=== PATIENT | female | born 1995 | race Two or more races ===

== ENCOUNTER 2025-08-29 11:12 | Outpatient (AMB) | payer MEDICAID, SELFPAY ==
[2025-08-29 11:36] VITALS: BP 107/70; PULSE 74; RESP 16; TEMP 36.6; O2SAT 97; BMI 30.4
--- NOTE | 2025-08-29 11:36 | OBCLNT_ITS ---
Vital Signs 08/29/25 11:36 Height 1.63 m Height Method Stated Weight 80.399 kg Weight Measurement Method Standing Scale BMI 30.4 BP 107/70 Blood Pressure Source Automatic Cuff Blood Pressure Location Left Upper Arm Position Sitting Respiration 16 Pulse 74 Pulse Source Monitor Temp 98 F Temp Source Oral Pulse Oximetry (%) 97 Oxygen Delivery Method Room Air Allergies/Home Meds Allergies & Medications Allergies No Known Allergies Allergy (Verified 08/29/25 11:37) Medication Reconciliation No Known Home Medications 08/29/25 [History Confirmed 08/29/25] Intake Visit Data Collection New Patient or Established: Established Patient (seen at [facility] within 3 years) Reason for Visit:: INITIAL CARE Seen by Clinical Staff ONLY (RN/MA): No Gold Letterer Required: Yes Gold Letterer's name/title: DIGNA GAINES Do You Feel Safe at Home: Yes Authorities Contacted: N/A PCP or OBGYN visit in last 3 months: Yes Hx Now: Yes Are you currently on any form of Control: No Pain Present Currently: No Pain Scale Used: Aguilar-Fishman/Numerical Pain scale:: 0 Smoking Status Smoking Status: Never smoker Questionnaires Covid-19 Vaccine Questionnaire Has patient been vacinated for Covid-19 Have you been vacinated for Covid-19: Yes PHQ-9 PHQ-2 Over the last 2 weeks, how often have you been bothered by any of the following problems? 1. Little interest or pleasure in doing things: not at all 2. Feeling down, depressed, or hopeless: not at all Total score: 0 PHQ-9 3. Trouble falling or staying asleep, or sleeping too much: Not at all 4. Feeling tired or having little energy: Not at all 5. Poor appetite or overeating: Not at all 6. Feeling bad about yourself - or that you are a failure or have let yourself or your family down: Not at all 7. Trouble concentrating on things, such as reading the newspaper or watching television: Not at all 8. Moving or speaking so slowly that other people could have noticed? - Or the opposite - being so fidgety or restless that you have been moving around a lot more than usual: not at all 9. Thoughts that you would be better off or of hurting yourself in some way: Not at all Total score: 0 Source: Developed by Drs. Rinku Sargent, Corinne La, Alec Avery and colleagues, with an educational jackie from [employer]. Depression screen completed yes Social History Living Situation History Marital Status: Lives With: Family Housing: House Tobacco History Smoking Status: Never smoker Second Hand Smoke Exposure: No Alcohol History Alcohol Intake: Never Domestic Abuse History Do You Feel Safe at Home: Yes History of Present Illness HPI Narrative Rhina Barcenas is a 2, para 2 patient with a history of previous section presenting for transfer of care from [facility] at 33 weeks and 3 days gestation. Her last menstrual period was in 2008 with an estim ated due date of October 14, 2025, which is consistent with first trimester ultrasound dating. The patient has a history of intravenous drug use, specifically methamphetamine, with her last use occurring in May. She was recently incarcerated and is currently participating in a rehabilitation program. During routine screening, she tested positive for hepatitis C with a high viral load, indicating an active infection. The patient acknowledges her history of IV drug use, which was not previously documented in her chart. The patient's other routine screens were negative, including AFP, cystic fibrosis screening, and spinal muscular atrophy screening. She opted out of gender determination during testing. Her blood type is positive. She has a history of previous section. The patient has a history of IV methamphetamine use, last use in May 2025, and is currently attending rehabilitation/treatment program. She was recently incarcerated and released in May 2025. She has an obstetric history of G3 T2 L2. Her current is at 33 weeks 3 days gestation with an estimated due date of October 14, 2025. She has a history of previous section and is para 2 with two prior deliveries. OB Initial Visit OB Flowsheet OB Flowsheet Initial Weight: Not Recorded Date -?-?-?-?-?-?-?-?-?-?-?-?- EGA Weight BP Alb Glu CTX Pres Fundal ht FHR Mov Dilation Station Effacement Hx Notes Visit Note 08/29/25 -?-?-?-?-?-?-?-?-?-?-?-?- 33w 3d 80.399 kg 107/70 34 150 New OB. Please see SOAP Note Menstrual History Menstrual reliability: definite Flow: normal Menstrual regularity: regular Monthly: Yes Age at menarche: 13 On control pills at conception: No Associated symptoms (LMP): Denies amenorrhea, nausea, vomiting, fatigue, breast tenderness, urinary frequency, irritability, bloating or other OB History : 4 Para: 2 Hx Total # of Abortions (Spontaneous & Elective): 1 # of Living Children: 2 Delivery History 1st : Child's name: RONEL date: 01/12/17 sex: male Gestational age at delivery (weeks): 41 Delivery type: Delivery complications: NONE History of depression before or after : No 2nd : Child's name: EDITH date: 06/11/24 sex: female Gestational age at delivery (weeks): 38 Delivery type: Delivery complications: NONE History of depression before or after : No Infection History & Risk Evaluation History of STDs: none Genetic Screening & History Genetic Screening/Teratology Counseling - Includes patient, baby's father, or anyone in either family with: 1. Patient's age 35 years or older as of estimated date of delivery: No 2. Thalassemia (Syriac, Japanese, Mediterranean, or Background); MCV less than 80: No 3. Neural Tube Defect (Meningomyelocele, Spina Bifida, or Anencephaly): No 4. Congenital Heart Defect: No 5. Down Syndrome: No 6. Yeison-Sachs (Ashkenazi Confucianism, Cajun, Japanese [place]): No 7. Baron Disease (Ashkenazi Confucianism): No 8. Familial Dysautonomia (Ashkenazi Confucianism): No 9. Sickle Cell Disease or Trait (): No 10. Hemophilia or other blood disorders: No 11. Muscular Dystrophy: No 12. Cystic Fibrosis: No 13. Otse[place]'s Chorea: No 14. Mental Retardation/Autism: No 15. Other inherited genetic or chromosomal disorder: No 16. Maternal Metabolic Disorder (EG,TYPE 1 Diabetes, PKU): No 17. Patient or baby's father had a child with defects not listed above: No 18. Recurrent loss or a stillbirth: No 19. Medications (including supplements, vitamins, herbs or otc drugs)/illicit/recreational drugs/alcohol since last menstrual period: No 20. Any other: No Infection History 1. Live with someone with TB or exposed to TB: No 2. Rash or viral illness since last menstrual period: No 3. Hepatitis B,C: No Other (see comments) Source: [employer] Review of Systems Constitutional Constitutional: Denies fatigue Gastrointestinal Gastrointestinal: Denies bloating, Denies nausea and Denies vomiting Genitourinary Genitourinary: Denies amenorrhea and Denies urinary frequency Psychiatric Psychiatric: Denies irritability Endocrine Endocrine: Denies fatigue Exam General General Appearance: alert, in no apparent distress and healthy appearing Head Head exam: atraumatic Neck Neck exam: Present normal inspection and trachea midline Chest Chest inspection: Present normal inspection and symmetric chest wall rise External exam: Present normal external exam; Absent tenderness Neuro Neurological exam: Present oriented X3 Psych Psychiatric exam: Present normal affect and normal mood Office Procedures OBC Clinic LOC & Office Proc's Nursing/Assessment Patient Status: Initial/New Patient OB Clinic Nursing Assessment: Medication Reconciliation, Update PMH in EMR and Vital Signs OB Clinic Coordination of Care: Complex Care and Chronic Disease 1-5, Consent,records obtained, informed consent, Education Simp Pt/Fam, Lab and Imaging orders, Results/Orders obtained and Staff clarify orders Special Needs: Heart tones New Patient Charge New Patient Point Assignment: 1134 New Patient Point Charge: ASSISTANT PROFESSOR OF PHYSICS Level 4 ([id number]) Immunizations diphth,pertus(acell),tetanus 2.5 Lf unit-8 mcg-5 Lf/0.5mL IM syringe Performing Provider: John Serra MD Performing Location: [facility] Administered by: Digna Gaines MA on 08/29/25 11:58 Dose Route Admin Location Dispensed Lot Number Expiration Date Pack age [facility] Bucket Wash Operator 0.5 mL IM Right Deltoid 0.5 mL [id number] 10/26/27 35005-550-02 [id number] [employer] VIS Given Date VIS Provided VIS Publication Date 08/29/25 Single Vaccine 24 Eligibility Eligibility Date Funding Source Public Non-[facility] Assessment & Plan Diagnosis / Problem List (1) Maternal care for low transverse scar from previous delivery: Status: Acute (2) Supervision of high risk , unspecified, third trimester: Status: Acute (3) Chronic viral hepatitis C: Status: Acute (4) Personal history of nicotine dependence: Status: Acute Plan Hepatitis C Positive Screening: - Routine screening revealed positive hepatitis C with high viral load suggesting active infection. - History of IV methamphetamine use with last use in May, consistent with hepatitis C transmission risk factors. - Patient was previously incarcerated and tested for hepatitis C during that time. Plan: - Follow-up labs ordered. - Referral to maternal- medicine pending. - Appointment scheduled with infectious disease specialist for hepatitis management. - Patient to sisal picker lab slip for additional testing. at 33 weeks 3 days: - patient with history of previous section. - Currently at 33 weeks 3 days gestation based on LMP 01/07/2025 with CURRY 10/14/2025, consistent with first trimester ultrasound. - Transfer of care from previous provider Dr. Palomino at [facility]. - Blood type O positive. - Genetic screening negative for cystic fibrosis, spinal muscular atrophy, and AFP negative. - Patient opted out of gender determination. Plan: - Continue routine care. - Review attached initial labs and ultrasound results.
== END 2025-08-29 12:59 | disposition home or self-care (01) ==
LOC: HODSOBC 11:12
PROVIDERS: PCP Obstetrics & Gynecology; Referring Provider Obstetrics & Gynecology; Supervising Provider Obstetrics & Gynecology; Visit Provider Obstetrics & Gynecology
DX: O09.293 Supervision of pregnancy with other poor reproductive or obstetric history, third trimester (principal); O34.211 Maternal care for low transverse scar from previous cesarean delivery; O09.893 Supervision of other high risk pregnancies, third trimester; O98.413 Viral hepatitis complicating pregnancy, third trimester; B18.2 Chronic viral hepatitis C; Z3A.33 33 weeks gestation of pregnancy; Z23 Encounter for immunization; Z87.891 Personal history of nicotine dependence
CPT/HCPCS: 90471; 90715; 99204; G0463

== ENCOUNTER 2025-09-13 14:56 | Outpatient (AMB) | payer MEDICAID, SELFPAY ==
[2025-09-13 15:02] VITALS: BP 109/67; PULSE 81; RESP 16; TEMP 36.2; O2SAT 97; BMI 31.3
--- NOTE | 2025-09-13 15:02 | OBCLNT_ITS ---
Vital Signs 09/13/25 15:02 Height 1.63 m Height Method Stated Weight 83.178 kg Weight Measurement Method Standing Scale BMI 31.3 BP 109/67 Blood Pressure Source Automatic Cuff Blood Pressure Location Left Upper Arm Position Sitting Respiration 16 Pulse 81 Pulse Source Monitor Temp 97.2 F Temp Source Oral Pulse Oximetry (%) 97 Oxygen Delivery Method Room Air Allergies/Home Meds Allergies & Medications Allergies No Known Allergies Allergy (Verified 10/03/25 05:40) Medication Reconciliation vits no.130-ferrous fum 27 mg iron-folic acid 800 mcg tablet ( Vitamin) 1 tab PO QDAY 10/03/25 [History Confirmed 10/03/25] docusate sodium 100 mg capsule 100 mg PO BID 10 days #20 caps 10/05/25 [Rx] ibuprofen 800 mg tablet 800 mg PO Q8H PRN pain #30 tabs 10/05/25 [Rx] Intake Visit Data Collection New Patient or Established: Established Patient (seen at [facility] within 3 years) Reason for Visit:: CARE Seen by Clinical Staff ONLY (RN/MA): No Mixing And Molding Machine Operator Required: Yes Mixing And Molding Machine Operator's name/title: DIGNA GAINES Do You Feel Safe at Home: Yes Authorities Contacted: N/A PCP or OBGYN visit in last 3 months: Yes Hx Now: Yes Are you currently on any form of Control: No Pain Present Currently: No Pain Scale Used: Aguilar-Fishman/Numerical Pain scale:: 0 Smoking Status Smoking Status: Never smoker Questionnaires Covid-19 Vaccine Questionnaire Has patient been vacinated for Covid-19 Have you been vacinated for Covid-19: Yes PHQ-9 PHQ-2 Over the last 2 weeks, how often have you been bothered by any of the following problems? 1. Little interest or pleasure in doing things: not at all 2. Feeling down, depressed, or hopeless: not at all Total score: 0 PHQ-9 3. Trouble falling or staying asleep, or sleeping too much: Not at all 4. Feeling tired or having little energy: Not at all 5. Poor appetite or overeating: Not at all 6. Feeling bad about yourself - or that you are a failure or have let yourself or your family down: Not at all 7. Trouble concentrating on things, such as reading the newspaper or watching television: Not at all 8. Moving or speaking so slowly that other people could have noticed? - Or the opposite - being so fidgety or restless that you have been moving around a lot more than usual: not at all 9. Thoughts that you would be better off or of hurting yourself in some way: Not at all Total score: 0 Source: Developed by Drs. Rinku Sargent, Corinne La, Alec Avery and colleagues, with an educational jackie from [employer]. Depression screen completed yes Social History Living Situation History Lives With: Family Housing: House Tobacco History Smoking Status: Never smoker Second Hand Smoke Exposure: No Alcohol History Alcohol Intake: Never Domestic Abuse History Do You Feel Safe at Home: Yes Care OB Visit Log OB Flowsheet Initial Weight: Not Recorded Date -?-?-?-?-?-?-?-?-?-?-?-?- EGA Weight BP Alb Glu CTX Pres Fundal ht FHR Mov Dilation Station Effacement Hx Notes Visit Note 08/29/25 -?-?-?-?-?-?-?-?-?-?-?-?- 33w 3d 80.399 kg 107/70 34 150 New OB. Please see SOAP Note 09/13/25 -?-?-?-?-?-?-?-?-?-?-?-?- 35w 4d 83.178 kg 109/67 36 145 active - Rhina Barcenas is a 30-year-old 4 para 4 female with a history of chronic hepatitis C presenting for transfer of care from Dr. Palomino at 35 weeks and 4 days gestation with an estimated due date of October 14. - She had late entry to care for this . - Obtain hepatitis C viral load labs - CBC and CMP - Infectious disease consultation - Determine delivery method ( se ction vs vaginal delivery) based on hepatitis C viral load results 09/20/25 -?-?-?-?-?-?-?-?-?-?-?-?- 36w 4d 83.121 kg 99/62 37 165 active - She reports feeling a lot of pressure, which she attributes to the weight of the baby. - The patient is experiencing what appea rs to be normal -related discomfort at this gestational age. - She has a scheduled section p lanned for October 04. - Patient has a history of delivering ap proximately 2 weeks before her due date in previous pregnancies. - She has 2 other children from previous pregnancies. - Patient denies having hepatitis C (all tests negative). - scheduled for October 04 (date to be confirmed) - Patient to come to hospital if experie ncing contractions before scheduled date - Bring tubal ligation consent form to h ospital 09/27/25 -?-?-?-?-?-?-?-?-?-?-?--?- 37w 4d 83.121 kg 101/61 absent cephalic 38 145 active - Rhina Barcenas presents for routine visit at 37 weeks and 4 days gestation with history of previous . - Patient reports baby is active and den ies contractions or other problems. - She experiences stretching pain. - Patient has some bumps in the genital area that she wanted evaluated. - She denies having hepatitis C in the p ast butrecords from Dr Palomino had Hep C in her problem list - Scheduled section on October 08 at 12:30 PM, check-in at 10:00 AM - NPO (nothing by mouth) for 8 hours wilber or to surgery, no food or water after midnight - Return to hospital immediately if cont ractions, leaking, or bleeding occur before scheduled surgery date CURRY Calculator Estimated Delivery Date Method Current WG Current Estimate 10/14/25 LMP (Certain) 39w 6d Other Estimates 10/12/25 Ultrasound #1 40w 1d Notes Visit Date: 08/29/25 Last Updated by: John Serra MD - Initial labs (dates not specified): Blood type O positive, genetic screening negative for cystic fibrosis and spinal muscular atrophy, AFP (alpha-fetoprotein) negative, Hepatitis B negative, Hepatitis C positive with high viral load - First trimester ultrasound: Consistent with estimated due date of 10/14/2025 Office Procedures OBC Clinic LOC & Office Proc's Nursing/Assessment Patient Status: Established Patient OB Clinic Nursing Assessment: Medication Reconciliation, Update PMH in EMR and Vital Signs OB Clinic Coordination of Care: Complex Care and Chronic Disease 1-5, Consent,records obtained, informed consent, Education Simp Pt/Fam, 1 Ins Authorization, Lab and Imaging orders, Results/Orders obtained and Staff clarify orders Special Needs: Heart tones Miscellaneous Interventions: Culture Specimen Collection Established Patient Charge Established Patient Point Assignment: 165 Established Patient Point Charge: EP Level 5 (160-above) Assessment & Plan Diagnosis / Problem List (1) Multiparity: Status: Acute (2) Maternal care for low transverse scar from previous delivery: Status: Acute (3) Supervision of high risk , unspecified, third trimester: Status: Acute
== END 2025-09-13 15:46 | disposition home or self-care (01) ==
LOC: HODSOBC 14:56
PROVIDERS: PCP Obstetrics & Gynecology; Referring Provider Obstetrics & Gynecology; Supervising Provider Obstetrics & Gynecology; Visit Provider Obstetrics & Gynecology
DX: O09.293 Supervision of pregnancy with other poor reproductive or obstetric history, third trimester (principal); O34.211 Maternal care for low transverse scar from previous cesarean delivery; O09.893 Supervision of other high risk pregnancies, third trimester; O26.613 Liver and biliary tract disorders in pregnancy, third trimester; B18.2 Chronic viral hepatitis C; Z3A.35 35 weeks gestation of pregnancy
CPT/HCPCS: 99215; G0463

== ENCOUNTER 2025-09-20 11:42 | Outpatient (AMB) | payer MEDICAID, SELFPAY ==
[2025-09-20 11:45] VITALS: BP 99/62; PULSE 87; RESP 16; TEMP 36.6; O2SAT 96; BMI 31.3
--- NOTE | 2025-09-20 11:45 | AMB.OBVISIT ---
Vital Signs 09/20/25 11:45 Height 1.63 m Height Method Stated Weight 83.121 kg Weight Measurement Method Standing Scale BMI 31.3 BP 99/62 Blood Pressure Source Automatic Cuff Blood Pressure Location Left Upper Arm Position Sitting Respiration 16 Pulse 87 Pulse Source Monitor Temp 97.9 F Temp Source Oral Pulse Oximetry (%) 96 Oxygen Delivery Method Room Air Allergies/Home Meds Allergies & Medications Allergies No Known Allergies Allergy (Verified 09/20/25 11:50) Medication Reconciliation No Known Home Medications 08/29/25 [History Confirmed 09/20/25] Intake Visit Data Collection New Patient or Established: Established Patient (seen at [facility] within 3 years) Reason for Visit:: CARE Seen by Clinical Staff ONLY (RN/MA): No Blood Or Blood Bank Technician Required: Yes Blood Or Blood Bank Technician's name/title: DIGNA GAINES Do You Feel Safe at Home: Yes Authorities Contacted: N/A PCP or OBGYN visit in last 3 months: Yes Hx Now: Yes Are you currently on any form of Control: No Pain Present Currently: No Pain Scale Used: Aguilar-Fishman/Numerical Pain scale:: 0 Smoking Status Smoking Status: Never smoker Immunizations Flu Vaccine in the Last 12 Months: No Flu Vaccine Exclusion Criteria: No Exclusion Criteria Questionnaires Covid-19 Vaccine Questionnaire Has patient been vacinated for Covid-19 Have you been vacinated for Covid-19: No PHQ-9 PHQ-2 Over the last 2 weeks, how often have you been bothered by any of the following problems? 1. Little interest or pleasure in doing things: not at all 2. Feeling down, depressed, or hopeless: not at all Total score: 0 PHQ-9 3. Trouble falling or staying asleep, or sleeping too much: Not at all 4. Feeling tired or having little energy: Not at all 5. Poor appetite or overeating: Not at all 6. Feeling bad about yourself - or that you are a failure or have let yourself or your family down: Not at all 7. Trouble concentrating on things, such as reading the newspaper or watching television: Not at all 8. Moving or speaking so slowly that other people could have noticed? - Or the opposite - being so fidgety or restless that you have been moving around a lot more than usual: not at all 9. Thoughts that you would be better off or of hurting yourself in some way: Not at all Total score: 0 Source: Developed by Drs. Rinku Sargent, Corinne La, Alec Avery and colleagues, with an educational jackie from [employer]. Depression screen completed yes Social History Living Situation History Lives With: Family Housing: House Tobacco History Smoking Status: Never smoker Second Hand Smoke Exposure: No Alcohol History Alcohol Intake: Never Domestic Abuse History Do You Feel Safe at Home: Yes Care OB Visit Log OB Flowsheet Initial Weight: Not Recorded Date <del>?</del> EGA Weight BP Alb Glu CTX Pres Fundal ht FHR Mov Dilation Station Effacement Hx Notes Visit Note 08/29/25 <del>?</del> 33w 3d 80.399 kg 107/70 34 150 New OB. Please see SOAP Note 09/20/25 <del>?</del> 36w 4d 83.121 kg 99/62 37 165 active - She reports feeling a lot of pressure, which she attributes to the weight of the baby. - The patient is experiencing what appears to be normal -related discomfort at this gestational age. - She has a scheduled section planned for October 04. - Patient has a history of delivering approximately 2 weeks before her due date in previous pregnancies. - She has 2 other children from previous pregnancies. - Patient denies having hepatitis C (all tests negative). - scheduled for October 04 (date to be confirmed) - Patient to come to hospital if experiencing contractions before scheduled date - Bring tubal ligation consent form to hospital CURRY Calculator Estimated Delivery Date Method Current WG Current Estimate 10/14/25 LMP (Certain) 37w 2d Notes Visit Date: 08/29/25 Last Updated by: John Serra MD - Initial labs (dates not specified): Blood type O positive, genetic screening negative for cystic fibrosis and spinal muscular atrophy, AFP (alpha-fetoprotein) negative, Hepatitis B negative, Hepatitis C positive with high viral load - First trimester ultrasound: Consistent with estimated due date of 10/14/2025 Office Procedures OBC Clinic LOC & Office Proc's Nursing/Assessment Patient Status: Established Patient OB Clinic Nursing Assessment: Medication Reconciliation, Update PMH in EMR and Vital Signs OB Clinic Coordination of Care: Complex Care and Chronic Disease 1-5, Consent,records obtained, informed consent, Education Simp Pt/Fam, 1 Ins Authorization, Lab and Imaging orders, Results/Orders obtained and Staff clarify orders Special Needs: Heart tones Established Patient Charge Established Patient Point Assignment: 150 Established Patient Point Charge: EP Level 4 (120-155) Assessment & Plan Diagnosis / Problem List (1) Personal history of nicotine dependence: Status: Acute (2) Maternal care for low transverse scar from previous delivery: Status: Acute (3) Supervision of high risk , unspecified, third trimester: Status: Acute Plan Problem List - at 36 weeks and 4 days - Elevated alkaline phosphatase Assessment 36-week and 4-day 4 para 3 with scheduled section. Patient reports feeling significant pelvic pressure consistent with weight at this gestational age. Laboratory results show hepatitis C non-reactive, HIV negative, and slightly elevated alkaline phosphatase at 156 with normal liver enzymes. Patient has history of delivering approximately 2 weeks early in previous pregnancies. Plan - scheduled for October 04 (date to be confirmed) - Patient to come to hospital if experiencing contractions before scheduled date - Bring tubal ligation consent form to hospital 1. Progress Reviewed gestational age (36 weeks and 4 days), growth, and heart rate. Planned frequent visits (every 2 weeks until 36 weeks, then weekly). 2. Instructed patient to monitor movements and report decreases immediately. 3. Testing Counseled on routine third-trimester labs per guidelines. Discussed potential need for ultrasound or monitoring based on risk factors. 4. Preeclampsia Precaution Educated on preeclampsia signs: severe headache, vision changes, right upper quadrant pain, sudden swelling. Advised urgent reporting of symptoms and discussed blood pressure monitoring if high risk. 5. Labor Precautions Reviewed labor signs: regular contractions, pelvic pressure, back pain, bleeding, or fluid leakage. Instructed to seek immediate care for these symptoms. 6. Lifestyle and Delivery Preparation Reinforced vitamins, nutrition, and safe activity. Discussed plan, pain management, and . Advised on labor preparation (e.g., hospital bag) and expectations. 7. Psychosocial Support Assessed emotional well-being and offered resources for mental health or parenting support.
== END 2025-09-20 12:13 | disposition home or self-care (01) ==
LOC: HODSOBC 11:42
PROVIDERS: Supervising Provider Obstetrics & Gynecology; Visit Provider Obstetrics & Gynecology
DX: O09.293 Supervision of pregnancy with other poor reproductive or obstetric history, third trimester (principal); O34.211 Maternal care for low transverse scar from previous cesarean delivery; O09.893 Supervision of other high risk pregnancies, third trimester; O99.891 Other specified diseases and conditions complicating pregnancy; R74.8 Abnormal levels of other serum enzymes; Z3A.36 36 weeks gestation of pregnancy; Z87.891 Personal history of nicotine dependence
CPT/HCPCS: 99214; G0463

== ENCOUNTER 2025-09-27 14:57 | Outpatient (AMB) | payer MEDICAID, SELFPAY ==
[2025-09-27 15:06] VITALS: BP 101/61; PULSE 77; RESP 18; TEMP 36.2; O2SAT 98; BMI 31.3
--- NOTE | 2025-09-27 15:06 | OBCLNT_ITS ---
Vital Signs 09/27/25 15:06 Height 1.63 m Height Method Stated Weight 83.121 kg Weight Measurement Method Standing Scale BMI 31.3 BP 101/61 Blood Pressure Source Automatic Cuff Blood Pressure Location Left Upper Arm Position Standing Respiration 18 Pulse 77 Pulse Source Monitor Temp 97.2 F Temp Source Oral Pulse Oximetry (%) 98 Oxygen Delivery Method Room Air Allergies/Home Meds Allergies & Medications Allergies No Known Allergies Allergy (Verified 09/27/25 15:07) Medication Reconciliation No Known Home Medications 08/29/25 [History Confirmed 09/27/25] Intake Visit Data Collection New Patient or Established: Established Patient (seen at [facility] within 3 years) Reason for Visit:: OBC Seen by Clinical Staff ONLY (RN/MA): No Finished Yarn Examiner Required: No Do You Feel Safe at Home: Yes Authorities Contacted: N/A PCP or OBGYN visit in last 3 months: Yes Date of Last PCP or OBGYN visit: 09/20/25 Hx Now: Yes Are you currently on any form of Control: No Pain Present Currently: No Pain Scale Used: Aguilar-Fishman/Numerical Pain scale:: 0 Smoking Status Smoking Status: Never smoker Immunizations Flu Vaccine in the Last 12 Months: No Flu Vaccine Exclusion Criteria: No Exclusion Criteria Questionnaires Covid-19 Vaccine Questionnaire Has patient been vacinated for Covid-19 Have you been vacinated for Covid-19: No PHQ-9 PHQ-2 Over the last 2 weeks, how often have you been bothered by any of the following problems? 1. Little interest or pleasure in doing things: not at all 2. Feeling down, depressed, or hopeless: not at all Total score: 0 PHQ-9 3. Trouble falling or staying asleep, or sleeping too much: Not at all 4. Feeling tired or having little energy: Not at all 5. Poor appetite or overeating: Not at all 6. Feeling bad about yourself - or that you are a failure or have let yourself or your family down: Not at all 7. Trouble concentrating on things, such as reading the newspaper or watching television: Not at all 8. Moving or speaking so slowly that other people could have noticed? - Or the opposite - being so fidgety or restless that you have been moving around a lot more than usual: not at all 9. Thoughts that you would be better off or of hurting yourself in some way: Not at all Total score: 0 If you checked off any problems, how difficult have these problems made it for you to do your work, take care of things at home, or get along with other people?: not difficult at all Source: Developed by Drs. Rinku Sargent, Corinne La, Alec Avery and colleagues, with an educational jackie from [employer]. Depression screen completed yes Social History Living Situation History Lives With: Family Housing: House Tobacco History Smoking Status: Never smoker Second Hand Smoke Exposure: No Alcohol History Alcohol Intake: Never Domestic Abuse History Do You Feel Safe at Home: Yes Care OB Visit Log OB Flowsheet Initial Weight: Not Recorded Date -?-?-?-?-?-?-?-?-?-?-?-?- EGA Weight BP Alb Glu CTX Pres Fundal ht FHR Mov Dilation Station Effacement Hx Notes Visit Note 08/29/25 -?-?-?-?-?-?-?-?-?-?-?-?- 33w 3d 80.399 kg 107/70 34 150 New OB. Please see SOAP Note 09/20/25 -?-?-?-?-?-?-?-?-?-?-?-?- 36w 4d 83.121 kg 99/62 37 165 active - She reports feeling a lot of pressure, which she attributes to the weight of the baby. - The patient is experiencing what appea rs to be normal -related discomfort at this gestational age. - She has a scheduled section p lanned for October 04. - Patient has a history of delivering ap proximately 2 weeks before her due date in previous pregnancies. - She has 2 other children from previous pregnancies. - Patient denies having hepatitis C (all tests negative). - scheduled for October 04 (date to be confirmed) - Patient to come to hospital if experie ncing contractions before scheduled date - Bring tubal ligation consent form to ospital 09/27/25 -?-?-?-?-?-?-?-?-?-?-?-?- 37w 4d 83.121 kg 101/61 absent cephalic 38 145 active - Rhina Barcenas presents for routine visit at 37 weeks and 4 days gestation with history of previous . - Patient reports baby is active and den ies contractions or other problems. - She experiences stretching pain. - Patient has some bumps in the genital area that she wanted evaluated. - She denies having hepatitis C in the p ast butrecords from Dr Palomino had Hep C in her problem list - Scheduled section on Wednesday, October 08 at 12:30 PM, check-in at 10:00 AM - NPO (nothing by mouth) for 8 hours wilber or to surgery, no food or water after midnight - Return to hospital immediately if cont ractions, leaking, or bleeding occur before scheduled surgery date CURRY Calculator Estimated Delivery Date Method Current WG Current Estimate 10/14/25 LMP (Certain) 37w 4d Other Estimates 10/12/25 Ultrasound #1 37w 6d Notes Visit Date: 08/29/25 Last Updated by: John Serra MD - Initial labs (dates not specified): Blood type O positive, genetic screening negative for cystic fibrosis and spinal muscular atrophy, AFP (alpha-fetoprotein) negative, Hepatitis B negative, Hepatitis C positive with high viral load - First trimester ultrasound: Consistent with estimated due date of 10/14/2025 Office Procedures OBC Clinic LOC & Office Proc's Nursing/Assessment Patient Status: Established Patient OB Clinic Nursing Assessment: Medication Reconciliation, Update PMH in EMR and Vital Signs OB Clinic Coordination of Care: Consent,records obtained, informed consent, Education Simp Pt/Fam, Lab and Imaging orders, Results/Orders obtained and Staff clarify orders Special Needs: Heart tones Established Patient Charge Established Patient Point Assignment: 110 Established Patient Point Charge: EP Level 3 (80-115) Assessment & Plan Diagnosis / Problem List (1) Maternal care for low transverse scar from previous delivery: Status: Acute (2) Supervision of high risk , unspecified, third trimester: Status: Acute Plan Problem List - at 37 weeks and 4 days gestation - History of previous section - Repeat section scheduled - Hair follicle swelling/varicosities secondary to Assessment 37-week 4-day patient with history of previous section presenting for routine visit. Patient reports movement and stretching pain but denies contractions. heart rate is 147 bpm, which is normal. Previous hepatitis C concern has been resolved with negative hepatitis C RNA test. Patient has follicular swelling in genital area secondary to increased blood flow during , which is not infectious. GBS culture has been performed. Pre-eclampsia panel has been ordered with blood pressures reported as stable. Plan - Scheduled section on October 08 at 12:30 PM, check-in at 10:00 AM - NPO (nothing by mouth) for 8 hours prior to surgery, no food or water after midnight - Return to hospital immediately if contractions, leaking, or bleeding occur before scheduled surgery date 1. Progress Reviewed gestational age at 37 weeks and 4 days, growth, and heart rate of 147 bpm which is normal. Patient scheduled for repeat section on October 08 at 12:30 PM with check-in at 10:00 AM. 2. Instructed patient to monitor movements and report decreases immediately. Patient confirmed baby is active with no contractions or other problems, experiencing normal stretching pain. 3. Testing Recent hepatitis C RNA test was negative. GBS culture was performed. Pre- eclampsia panel ordered during visit. 4. Preeclampsia Precaution Pre-eclampsia panel ordered as precautionary measure. Blood pressures noted to be okay during visit. 5. Labor Precautions Reviewed labor signs with patient: instructed to come to hospital immediately if experiencing contractions, leaking, or bleeding before scheduled section date. 6. Lifestyle and Delivery Preparation Provided pre-operative instructions: NPO (nothing by mouth) for 8 hours prior to surgery, no food or water after midnight before procedure. Discussed upcoming section scheduled for October 08. 7. Psychosocial Support Patient appeared comfortable and engaged during visit. Addressed patient's concerns about skin changes, reassuring that follicular swelling is normal during and will resolve .
== END 2025-09-27 15:55 | disposition home or self-care (01) ==
LOC: HODSOBC 14:57
PROVIDERS: Supervising Provider Obstetrics & Gynecology; Visit Provider Obstetrics & Gynecology
DX: O09.293 Supervision of pregnancy with other poor reproductive or obstetric history, third trimester (principal); O34.211 Maternal care for low transverse scar from previous cesarean delivery; O09.893 Supervision of other high risk pregnancies, third trimester; O99.891 Other specified diseases and conditions complicating pregnancy; R22.9 Localized swelling, mass and lump, unspecified; Z3A.37 37 weeks gestation of pregnancy
CPT/HCPCS: 99213; G0463

== ENCOUNTER 2025-10-03 05:22 | Inpatient (IN) | payer MEDICAID, SELFPAY ==
[2025-10-03] VITALS (18 sets, daily range): BP systolic 70–109; BP diastolic 46–70; PULSE 57–85; RESP 12–98; TEMP 36.3–37.2; O2SAT 96–99; BMI 31.2
[2025-10-03] MEDS: RINGERS LACTATED 1000 ML 1,000 ML 125 ML IV (06:30)
--- NOTE | 2025-10-03 06:47 | PD.LDHP ---
Documentation for date of: 10/03/25 OB Labor/Induct. HPI History of Present Illness Chief complaint: Uterine contractions/labor : 4 Para: 2 Term pregnancies: 2 pregnancies: 0 Living children: 2 History of Abortions: Spontaneous and Elective: 1 History of Vaginal deliveries: 0 History of sections: Yes (X2) History of : No CURRY: 10/14/25 History of present illness: 30-year-old 4 para 2-0-1-2 at 38 weeks and 3 days presented to triage with contractions in early labor. Patient was noted to be 2 cm dilated with almost complete effacement of the cervix. She has a history of 2 prior C-sections and was scheduled for repeat on 10/08/2025. Patient denies any vaginal bleedin or any associated complaints, she was adequate movements. She has started care with Dr. Palomino and then transferred care to the [facility] clinic in the third trimester Her labs and records are scanned History of Present Adequate Care: Yes Labs Labs: Negative: RPR, Hepatitis B, HIV, Chlamydia, Gonorrhea and Group Beta Strep and Unknown: Rubella Titre, Herpes Type 1 and Herpes Type 2 Review of Systems Review of Systems Systems Reviewed: All systems reviewed, normal except as documented Past Medical History Surgical History SURGICAL: Positive Section (X2) Meds Home Medications and Allergies Home Medications ?Medication ?Instructions ?Recorded ?Confirmed ?Type vits no.130-ferrous fum 1 tab PO QDAY 10/03/25 10/03/25 History 27 mg iron-folic acid 800 mcg tablet ( Vitamin) Allergies Allergy/AdvReac Type Severity Reaction Status Date / Time No Known Allergies Allergy Verified 10/03/25 05:40 OB Exam Physical Exam Vital signs: Temp Pulse Resp BP 97.4 F 71 18 109/70 10/03/25 05:51 10/03/25 05:51 10/03/25 05:51 10/03/25 05:51 Constitutional Constitutional: no acute distress Routine HEENT Exam Head: Present normocephalic and atraumatic Eye: Present EOMI and PERRL ENT: Present mucous membranes moist Routine Neck Exam Neck: Present supple and trachea midline Routine Cardiovascular Exam Cardiovascular: Present RRR Routine Abdominal Exam Abdominal: Present soft and normoactive bowel sounds Detailed Labor and Delivery Exam Dilation (cm): 2 Effacement (%): 100 Cervix position: mid station: -2 Consistency: soft Presentation: Vertex Baseline heart rate: 145 monitor accelerations: 15x15 monitor decelerations: None Routine Extremities Exam Extremities: Present full ROM Routine Skin Exam Skin: Present intact, dry and warm Routine Neurological Exam Neurological: Present alert, oriented X3 and CN II-XII intact Routine Psychiatric Exam Psychiatric: Present normal affect and normal thought process OB Assessment & Plan Assessment and Plan (1) Maternal care for low transverse scar from previous delivery: Status: Acute Assessment and plan: Admit to inpatient status for repeat low transverse IV access, CBC, type and screen, LR at 125, RPR, COVID-19 test GBS negative Ancef 2 g prior to surgery start Frank catheter to drainage SCDs for DVT prophylaxis Anesthesia to preop for spinal anesthesia Scheduled for surgery. (2) Supervision of high risk , unspecified, third trimester: Status: Acute
[2025-10-03] MEDS: FAMOTIDINE INJ 10 MG/ML VIAL 2 ML 20 MG IV (07:25)
[2025-10-03] MEDS: METOCLOPRAMIDE INJ 5 MG/ML VIAL 2 ML 10 MG IVP (07:25)
[2025-10-03] MEDS: ceFAZolin/D5W 2 GM IV 2 GM/100 ML BAG IV (07:25)
[2025-10-03 07:46] LABS: Syphilis Nonreactive (Nonreactive)
[2025-10-03 08:16] LABS: Basophils # (Auto) 0.0 Thou/mm3 (0.0-0.2); Basophils % (Auto) 0 % (0-2.5); Eosinophils # (Auto) 0.0 Thou/mm3 (0.0-0.5); Eosinophils % (Auto) 0 % (0-10); Hematocrit 38.3 % (36.0-46.0); Hemoglobin 13.0 g/dL (12.0-16.0); Immature Granulocytes Auto 0.04 Thou/mm3 (0.00-0.00); Lymphocytes # (Auto) 1.7 Thou/mm3 (1.0-4.8); Lymphocytes % (Auto) 18 % (10-50); Mean Corpuscular HGB Conc 33.9 g/dl (31.0-37.0); Mean Corpuscular Hemoglobin 31.9 pg (25.0-35.0); Mean Corpuscular Volume 94 fL (80-100); Monocytes # (Auto) 0.7 Thou/mm3 (0.0-0.8); Monocytes % (Auto) 8 % (0-12); Neutrophils # (Auto) 7.0 Thou/mm3 (1.8-7.7); Neutrophils % (Auto) 74 % (37-80); Nucleated Red Blood Cell # 0.00 Thou/mm3 (0.00-0.00); Nucleated Red Blood Cell % 0 /100 WBC (0); Platelet Count 203 Thou/mm3 (140-440); RDW Standard Deviation 46.6 fL (36.4-46.3); Red Blood Count 4.07 Miln/mm3 (4.00-5.20); White Blood Count 9.5 Thou/mm3 (3.6-11.0)
--- NOTE | 2025-10-03 09:31 | PD.LDHP ---
Documentation for date of: 10/03/25 OB Labor/Induct. HPI History of Present Illness Chief complaint: Active labor, previous x 2 : 4 Para: 2 Term pregnancies: 2 pregnancies: 0 Living children: 2 History of Abortions: Spontaneous and Elective: 1 History of Vaginal deliveries: 0 History of sections: Yes (X2) History of : No CURRY: 10/14/25 Gestational Age (weeks): 38 Gestational Age (days): 3 History of present illness: 30-year-old 4 para 2-0-1-2 at 38 weeks and 3 days presented to triage with contractions in early labor. Patient was noted to be 2 cm dilated with almost complete effacement of the cervix. She has a history of 2 prior C-sections and was scheduled for repeat on 10/08/2025. Patient denies any vaginal bleeding or any associated complaints, she was adequate movements. She has started care with Dr. Palomino and then transferred care to the [facility] clinic in the third trimester Her labs and records are scanned History of Present Adequate Care: Yes Labs Labs: Positive: Rubella Titre, Negative: RPR, Hepatitis B, HIV, Chlamydia, Gonorrhea and Group Beta Strep and Unknown: Herpes Type 1, Herpes Type 2 and Covid-19 Past Medical History Surgical History SURGICAL: Positive Section (X2) Meds Home Medications and Allergies Home Medications ?Medication ?Instructions ?Recorded ?Confirmed ?Type vits no.130-ferrous fum 1 tab PO QDAY 10/03/25 10/03/25 History 27 mg iron-folic acid 800 mcg tablet ( Vitamin) Allergies Allergy/AdvReac Type Severity Reaction Status Date / Time No Known Allergies Allergy Verified 10/03/25 05:40 OB Exam Physical Exam Vital signs: Temp Pulse Resp BP 97.4 F 62 18 106/65 10/03/25 05:51 10/03/25 07:05 10/03/25 05:51 10/03/25 07:05 OB Results Labs 10/03/25 06:41 Labs: Short CBC 10/03/25 Range/Units 06:41 WBC 9.5 (3.6-11.0) Thou/mm3 Hgb 13.0 (12.0-16.0) g/dL Hct 38.3 (36.0-46.0) % Plt Count 203 (140-440) Thou/mm3 OB Assessment & Plan Assessment and Plan (1) Maternal care for low transverse scar from previous delivery: Status: Acute (2) Supervision of high risk , unspecified, third trimester: Status: Acute
--- NOTE | 2025-10-03 09:32 | PD.LDDELS ---
Data (Teresa) Data Hx Section: Yes (X2) Maternal Blood Type: O Pos Rubella Titre: Positive RPR: Non-reactive Labs: Negative: RPR, Hepatitis B, HIV, Chlamydia, Gonorrhea and Group Beta Strep : 4 Term: 2 : 0 Livin Abortions: Spontaneous & Theraputic: 1 Delivery Data (Teresa) Labor Data Initiation of labor: Spontaneous Induction/Augmentation Agent: None ROM date: 10/03/25 ROM time: 08:05 Amniotic membrane rupture type: Artificial Amniotic fluid description: Clear Delivery Data EDC: 10/14/25 EDC calculated by:: LMP/early US confirmation Date of arrival to unit: 10/03/25 Onset of labor date: 10/03/25 Onset of labor time: 08:05 Complete dilation date: 10/03/25 Complete dilation time: 08:05 delivery date: 10/03/25 [place] delivery time: 08:06 Gestational age (weeks): 38 Gestational age (days): 3 Placenta delivery date: 10/03/25 Placenta delivery time: 08:07 Stage 1 total time: Labor - Stage 1 Duration 0 minutes Delivered by: Molly Ham (OB Clinic) Delivery nurse: Pawan Kebede nurse: Nash Supply Chain Development Manager at delivery: No Support person(s) at delivery: FOB Other staff at delivery: ELISE Munroe, OB OR tech Delivery Method Delivery method: Low Transverse Presentation: Vertex position: OA Anesthesia Type Anesthesia Type: Spinal Delivery Room Medications Delivery room medications: Pitocin 20 u IV Placenta Placenta delivery description: Manual Removal Cord blood sent to lab: Yes cord blood collection: Cord Blood Type Episiotomy Episiotomy description: None EBL Estimated blood loss (ml): 400 Umbilical Cord cord description: 3 Vessels, Nuchal Cord and Reduced Additional Procedures See op report for further details. Complications Complications: None Data (Teresa) Data 's name: Jenna order: 1 's gender: Female Identification band number: [id number] weight (gms): 2800 kg Weight (pounds): 6172 lbs and 15.1 ozs length: 49 cm 1 minute: 8 5 minutes: 9
--- NOTE | 2025-10-03 09:35 | PD.GYNPROC ---
Operative Note - HEEL CEMENTER MACHINE Procedure Date of procedure: 10/03/25 Procedure Performed: Repeat low-transverse section with near-total bilateral salpingectomies Indication: The patient is a 30-year-old -0-1-[address] Palomino and transferred to Dr. Serra at the [facility] clinic who presented to triage this morning in active labor. She was 2 cm dilated and completely effaced. She had a history of x 2. Her EDC was 10/14/2025 making the patient 38-3/7 weeks. Of note, the patient was consented for a repeat low-transverse section. Also of note she had signed tubal ligation papers in the office with Dr. Palomino in July 2025 and desired permanent sterilization in the form of the salpingectomy. Her tubal papers were signed and on the chart. Pre-Op diagnosis: 1. IUP 38-3/7 weeks 2. Previous section x 2 3. Active labor 4. Multiparity, desires permanent sterilization Post-Op diagnosis: Same Anesthesia type: Spinal Procedure description: After obtaining informed consent through an official pool lifeguard for a repeat with bilateral salpingectomies, the patient was brought back to the operating room and spinal anesthesia administered. She was then prepped and draped in the dorsal supine position in a normal sterile fashion. A Frank catheter was inserted into the patient's bladder. The patient was given 2 g of Ancef by anesthesia. A Pfannenstiel skin incision was made with a scalpel through the patient's prior Pfannenstiel scar, and carried down to the underlying fascia. The fascia was incised in the midline and the fascial incision extended laterally using Marino scissors. The superior aspect of the fascia was grasped with Yuki clamps and the underlying rectus muscles dissected off using blunt and sharp dissection. This was repeated in the inferior aspect the incision. The rectus muscles were in the midline and the peritoneum was picked up and entered sharply with Metzenbaums. This was extended superiorly and inferiorly with good visualization of the bladder. The bladder blade was inserted and the uterus incised in a low transverse fashion above the bladder reflection using a scalpel. The uterine incision was extended laterally using blunt dissection with the surgeon's fingers. The bag of water was ruptured and clear fluid was noted. The bladder blade was removed and the was delivered in a vertex presentation atraumatically. As the baby was vigorous at , delayed cord clamping was performed for 30 seconds. The cord was clamped and cut and the infant was handed off to the waiting pediatric staff. Cord blood was collected. Cord gases were saved. The placenta was then manually removed, and the uterus exteriorized and cleared of all clots and debris. The uterine incision was repaired using 0 Monocryl in a running locked fashion. Excellent hemostasis was noted. The uterus was returned to the patient's abdominal cavity and copious irrigation carried out with warm normal saline. The uterine incision was reexamined and noted to be hemostatic. After ensuring the patient still verbally consented for permanent sterilization, the uterus was tilted while in situ the left fallopian tube was identified followed out to its fimbriated end, and elevated using 2 Norberto clamps. The fallopian tube was ligated using 2 free ties of 0 plain and the intervening tubal segment was transected and have to handed off the operating field. A near total portion of fallopian tube was handed off the operating field. The uterus was again tilted while in situ and the opposite fallopian tube was identified, followed its out to its fimbriated end, elevated using 2 Norberto clamps. The intervening tubal segment was ligated and transected in a similar fashion. A near total portion of that fallopian tube was transected and handed off the operating field. Both tubal transection sites were reexamined noted be hemostatic. The uterine incision was reexamined again and noted to be hemostatic. After ensuring the rectus muscles were hemostatic, these were reapproximated in the midline using a running suture of 0 Monocryl. The fascia was closed with 0 Vicryl in a running fashion. The subcutaneous tissues were irrigated and found to be hemostatic. These were reapproximated using a running suture of 2-0 plain. The skin was closed with a subcuticular suture of 4-0 Monocryl. The patient tolerated the procedure well, sponge, lap, needle, and instrument counts were correct x 2. The patient went to the recovery area awake and in stable condition. Pathology was near-total segments of bilateral fallopian tubes. Fluids: crystalloid Fluid amount (mL): 3,000 Urine output (mL): 300 Specimen: left tube and right tube Implants: None Estimated blood loss (ml): 400 Findings: Liveborn female in the OA presentation with a loose nuchal cord x 1 no meconium. Apgars were 8 and 9. Weight was 2800 g or approximately 6 pounds 3 ounces. The placenta was complete spontaneous grossly normal. Patient's fallopian tubes ovaries and uterus were grossly normal. There is very little scar tissue present in the patient's abdomen. She had a thick lower uterine segment. Complications: none Surgical staff Operation Date: 10/03/25 07:45 Case Staff EMERY WHEEL MOLDER: Vidal Brown RN First Assistant: Natasha Christine Diagnosis Discharge Diagnosis (1) Supervision of high risk , unspecified, third trimester: Status: Acute (2) Maternal care for low transverse scar from previous delivery: Status: Acute Problem details: Repeat #3 performed 10/03/2025 (3) Multiparity: Status: Acute Problem details: Patient desires permanent sterilization. Tubal papers on chart from 08/23. Bilateral salpingectomy performed during section today. Problem List Completed Was Problem List Reviewed/Reconciled?: Yes
[2025-10-03] MEDS: OXYTOCIN in NS 20 units 20 UNIT/1,000 ML BAG 125 UNIT IV (14:09)
--- NOTE | 2025-10-03 14:20 | PC.NURSE ---
1410: RN bedside, Pt vomitted. Pt denies nausea post emesis. Call made to Ashley at 1416, orders received for zofran 4mg X1, if nausea continues give phenergan 25mg X1.
[2025-10-03] MEDS: RINGERS LACTATED 1000 ML 1,000 ML 100 ML IV (21:45)
[2025-10-04 03:47] VITALS: BP 101/68; PULSE 80; RESP 16; TEMP 37.2; O2SAT 98
[2025-10-04] MEDS: KETOROLAC INJ 30 MG/ML VIAL IVP ×2 (05:30→18:34)
[2025-10-04 06:34] LABS: Basophils # (Auto) 0.0 Thou/mm3 (0.0-0.2); Basophils % (Auto) 0 % (0-2.5); Eosinophils # (Auto) 0.1 Thou/mm3 (0.0-0.5); Eosinophils % (Auto) 1 % (0-10); Hematocrit 32.2 % (36.0-46.0); Hemoglobin 10.9 g/dL (12.0-16.0); Immature Granulocytes Auto 0.05 Thou/mm3 (0.00-0.00); Lymphocytes # (Auto) 1.4 Thou/mm3 (1.0-4.8); Lymphocytes % (Auto) 14 % (10-50); Mean Corpuscular HGB Conc 33.9 g/dl (31.0-37.0); Mean Corpuscular Hemoglobin 31.8 pg (25.0-35.0); Mean Corpuscular Volume 94 fL (80-100); Monocytes # (Auto) 0.8 Thou/mm3 (0.0-0.8); Monocytes % (Auto) 7 % (0-12); Neutrophils # (Auto) 8.0 Thou/mm3 (1.8-7.7); Neutrophils % (Auto) 77 % (37-80); Nucleated Red Blood Cell # 0.00 Thou/mm3 (0.00-0.00); Nucleated Red Blood Cell % 0 /100 WBC (0); Platelet Count 181 Thou/mm3 (140-440); RDW Standard Deviation 46.6 fL (36.4-46.3); Red Blood Count 3.43 Miln/mm3 (4.00-5.20); White Blood Count 10.3 Thou/mm3 (3.6-11.0)
[2025-10-04 07:48] VITALS: BP 100/65; PULSE 73; RESP 18; TEMP 36.3; O2SAT 96
[2025-10-04 08:00] VITALS: BP 103/62; PULSE 72; RESP 16; TEMP 37; O2SAT 98
[2025-10-04] MEDS: DOCUSATE SOD 100 MG CAPSULE PO (08:15)
--- NOTE | 2025-10-04 12:01 | PD.LDPPPRG ---
Subjective Subjective Interval history: Patient has no/ complaints Headache no Blurry vision no Chest pain no Palpitations no Shortness of breath no Nausea or vomiting or constipation no Back pain no Dysuria no Dizziness no calf pain no She is voiding spontaneously after catheter removal yes Passing flatus yes Lochia minimal yes Exam Vital Signs Temp Pulse Resp BP Pulse Ox O2 Del Method 97.4 F 73 18 100/65 96 Room Air 10/04/25 07:48 10/04/25 07:48 10/04/25 07:48 10/04/25 07:48 10/04/25 07:48 10/04/25 07:48 Narrative Exam alert x3 chest clear CVS RRR NO thromegaly Uterus is nontender Uterus is firm Just below the umbilicus Bowel sounds present Abdomen soft no hernias noted/no CVAT Incision CDI No drainage Appropriately tender No calf tenderness Edema negative Objective Labs 10/04/25 04:44 Labs: Laboratory Results - last 24 hr 10/04/25 04:44 WBC 10.3 RBC 3.43 L Hgb 10.9 L D Hct 32.2 L MCV 94 MCH 31.8 MCHC 33.9 RDW Std Deviation 46.6 H Plt Count 181 Neut % (Auto) 77 Lymph % (Auto) 14 Schley % (Auto) 7 Eos % (Auto) 1 Baso % (Auto) 0 Neut # (Auto) 8.0 H Lymph # (Auto) 1.4 Schley # (Auto) 0.8 Eos # (Auto) 0.1 Baso # (Auto) 0.0 Immature Gran # (Auto) 0.05 H Absolute Nucleated RBC 0.00 Immature Gran % 1 H Nucleated RBC % 0 Assessment & Plan Problem List (1) Supervision of high risk , unspecified, third trimester: Status: Acute (2) Maternal care for low transverse scar from previous delivery: Problem details: Repeat #3 performed 10/03/2025 Status: Acute (3) Multiparity: Problem details: Patient desires permanent sterilization. Tubal papers on chart from 08/23. Bilateral salpingectomy performed during section today. Status: Acute Plan Comment Plan Comment: 30 years old at 38 . 3 weeks came in labor and had a repeat LTCS / BTL , POD #1 s/p repeat LTCS and Bilateral salpingectomies . doing well anticipate discharge tomorrow Time Spent With Patient Time: Total time spent is greater than 50% in coordination of care (as documented) at patient's floor/unit and/or counseling patient: Time with patient: less than 15 minutes
[2025-10-04 12:41] VITALS: BP 101/64; PULSE 80; RESP 16; TEMP 37.2; O2SAT 97
[2025-10-04 17:54] VITALS: BP 101/66; PULSE 78; RESP 16; TEMP 36.9; O2SAT 97
[2025-10-04 19:34] VITALS: BP 98/62; PULSE 79; RESP 17; TEMP 37; O2SAT 97
[2025-10-05 03:47] VITALS: BP 102/64; PULSE 67; RESP 18; TEMP 36.8; O2SAT 97
[2025-10-05] MEDS: DOCUSATE SOD 100 MG CAPSULE PO (08:51)
--- NOTE | 2025-10-05 09:29 | PD.LDDS ---
DS: Providers Provider Date of admission: 10/03/25 06:20 Primary care physician: Physician No Primary/Family Admitting Provider: John Serra MD Attending Provider on Admission: John Serra MD Consults: 10/03/25 09:51 Referral Routine Comment: Attending Provider on DC: Gaye Licona MD Discharging Provider: Gaye Licona MD DS: Diagnosis Discharge Diagnosis (1) Maternal care for low transverse scar from previous delivery: Status: Acute (2) Multiparity: Status: Acute Problem List Completed Was Problem List Reviewed/Reconciled?: Yes Summary/Hosp Course Brief History: 30-year-old 4 para 2-0-1-2 at 38 weeks and 3 days presented to triage with contractions in early labor. Patient was noted to be 2 cm dilated with almost complete effacement of the cervix. She has a history of 2 prior C-sections and was scheduled for repeat on 10/08/2025. Patient denies any vaginal bleeding or any associated complaints, she was adequate movements. She has started care with Dr. Palomino and then transferred care to the [facility] [employer] clinic in the third trimester Her labs and records are scanned. --- Patient is doing well on POD 2 s/p uncomplicated RLTCS with bilateral tubal ligation via salpingectomy. She has had an uncomplicated post-operative course, meeting all milestones and feels ready for discharge home. She is ambulating without lightheadedness, tolerating regular diet no n/v, spontaneously voiding without issue. She has no chest pain or shortness of breath. No fevers or chills. Pain well controlled. Vitals normal, benign exam. Hemodynamically stable with no evidence of infection. Post-op Hgb 10.9 from 13. Peripartum Data Delivery Method: Low Transverse Episiotomy Description: None Procedures: Procedures Operation Date: 10/03/25 07:45 Actual Procedure Side Surgeon p w/tubal OB Molly Ham ([facility])MD Status at Discharge Functional status at discharge: independent ambulation Overall status at discharge: patient is back to baseline Time Spent with Patient Time attestation: Total time spent providing and/or coordinating discharge services: Exam Vital Signs Temp Pulse Resp BP Pulse Ox O2 Del Method 98.3 F 67 18 102/64 97 Room Air 10/05/25 03:47 10/05/25 03:47 10/05/25 03:47 10/05/25 03:47 10/05/25 03:47 10/05/25 03:47 Narrative Exam General: well developed, well nourished, no acute distress, conversant Cardiac: normal heart rate Lungs: breathing without distress Abdomen: soft, post-gravid, non-tender, no rebound or guarding, pfannenstiel incision covered by dry/clean/intact prineo bandage. Incision well reapproximated. No erythema, drainage or induration. Fundus firm at u-2cm. Extremities: no pain with palpation of calves, trace edema of BLE Discharge Plan Plan Patient Disposition: HOME (Self Care) Patient condition on transfer: Stable Prescriptions/Referrals Prescriptions/Med Rec: New hydrocodone-acetaminophen 5-325 mg Tablet 1 tab PO Q6H MDD 4 tablets PRN (Reason: Patient rated pain 7 to 8) 7 Days Qty: 10 0RF docusate sodium 100 mg Capsule 100 mg PO BID 10 Days Qty: 20 0RF ibuprofen 800 mg tablet 800 mg PO Q8H PRN (Reason: pain) Qty: 30 0RF Continued Vitamin 27 mg iron- 800 mcg tablet 1 tab PO QDAY Referrals: John Serra MD [Physician, [employer]] No Primary/Family,Physician [Primary Care Provider] Patient/Caregiver Discharge Instructions Discharge Activity: activity as tolerated and other Other Discharge Activity Instructions:: vaginal rest and no heavy lifting more than 10 pounds for 6 [address] while taking narcotic. keep incision clean and dry. do not submerge. Other Discharge Diet Instructions: regular Education Materials: Depression, Breast Care After , After a , C Section Dc Print Language: Mongolian Activity Restrictions/Additional Instructions: follow up with Dr. Serra in 1 to 2 weeks for incision check, call clinic for appointment Stand Alone Forms: Margy Award Info., Patient Portal Info Letter Discharge Order Discharge Orders: Discharge (Routine); Ordered 10/05/25 Ordered By: Gaye Licona Planned Discharge Date 10/05/25
[2025-10-05 11:24] VITALS: BP 105/65; RESP 19; TEMP 36.8; O2SAT 98
== END 2025-10-05 12:35 | disposition home or self-care (01) | DRG 539 ==
LOC: S4SX 07:42 → S4NX 07:43
PROVIDERS: Obstetrics & Gynecology; Admitting Provider Obstetrics & Gynecology; Visit Provider Obstetrics & Gynecology
PROC: 0UL70ZZ Occlusion of Bilateral Fallopian Tubes, Open Approach (ICD-10-PCS; CPT 59514; principal; 2025-10-03 07:30)
DX: O34.211 Maternal care for low transverse scar from previous cesarean delivery (principal); O69.81X0 Labor and delivery complicated by cord around neck, without compression, not applicable or unspecified; Z30.2 Encounter for sterilization; Z37.0 Single live birth; Z3A.38 38 weeks gestation of pregnancy
CPT/HCPCS: 36415; 85025; 86780; 86850; 86900; 86901; A4217; A4649; J0689; J1885; J2274; J2371; J2590; J2765; J3010; J3490; J7120; A9270; J2270